=== PATIENT | male | born 1990 | race African-American/Black ===

== ENCOUNTER 2016-09-28 14:41 | Inpatient (IN) ==
[2016-09-28] MEDS ORDERED: SODIUM CHLORIDE 0.9% 1,000 ML IV STA (15:49)
[2016-09-28] MEDS ORDERED: ACETAMINOPHEN 500 MG TABLET PO STA (15:49)
--- NOTE | 2016-09-28 15:50 | Emergency Department Note ---
Edu Mills Mantricia, am scribing for, and in the presence of, Gibson Verma MD 15:47. Luci Mills Charles R, MD, personally performed the services described in this documentation, ascribed by Mciheline Sorensen in my presence, and it is both accurate and complete [id number] . Arrival - Arrival Chief Complaint: Upper Respiratory ED Nursing Triage Note: Brought in by EMS c/o congesiton, fever, body aches, and vomiting-onset 4 days ago. Also reports lower back pain x's 2 weeks. Mode of Arrival: Stretcher Limitations: No Limitations Source: Patient Time Seen by Provider: 09/28/16 14:54 - History of Present Illness HPI Narrative: Pt is a 26 y/o black male arriving to ED by EMS with c/o back pain that onset 2 weeks ago. Pt states the back pain is accompanied with leg numbness, sore throat , congestion, chills, headache, vomiting, and soreness all over. Pt also states that he had a fever of 103 yesterday. 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 Pt reports no other complaints to ED. Onset (ago): week(s) Consistency: constant Severity: mild Allergies/Adverse Reactions: Allergies Allergy/AdvReac Type Severity Reaction Status Date / Time No Known Allergies Allergy Verified 09/28/16 14:48 Home Medications: Home Medications Medication Instructions Recorded Confirmed Type No Known Home Medications [No 09/28/16 09/28/16 History Known Home Medications] Review of System - Review of System 12 point system: reviewed and no additional remarkable complaints except as stated - Review of System Constitutional: Present: chills, fever (103 yesterday). Absent: diaphoresis Eyes: Absent: discharge, pain Head/Ears/Nose/Throat: Present: other (congestion). Absent: earache, epistaxis Respiratory: Present: cough. Absent: respiratory distress, wheezing Cardiovascular: Absent: chest pain, palpitations, dyspnea on exertion Gastrointestinal: Present: vomiting. Absent: abdominal pain, nausea, diarrhea Genitourinary male: Absent: urgency, dysuria Musculoskeletal: Present: other (leg numbness). Absent: arm pain, back pain, leg pain, neck pain Skin: Absent: rash, lesions Neurological: Present: headache. Absent: weakness Medical,Surgical,& Family Hx - Social History Smoking Status: Never smoker Frequency of Alcohol Use: None Type of Drug Use: None Exam Vital Signs: Vital Signs Temperature 102.6 F H 09/28/16 16:45 Pulse Rate 87 09/28/16 19:05 Respiratory Rate 20 09/28/16 19:05 Blood Pressure 121/72 09/28/16 19:05 O2 Sat by Pulse Oximetry 98 09/28/16 19:05 - General General appearance: alert, in no apparent distress - Head Head exam: Present: atraumatic, normocephalic, normal inspection - Eye Eye exam: Present: normal appearance, PERRL, EOMI - ENT ENT exam: Present: normal exam, normal oropharynx, mucous membranes moist, TM's normal bilaterally, normal external ear exam, other (erythamous throat) - Neck Neck exam: Present: normal inspection, full ROM, trachea midline. Absent: tenderness - Chest Chest inspection: Present: normal inspection, symmetric chest wall rise. Absent : tenderness - Respiratory Respiratory exam: Present: normal lung sounds bilaterally - Cardiovascular Cardiovascular exam: Present: normal rhythm, tachycardia, normal heart sounds - Abdominal Exam Abdominal exam: Present: soft, normal bowel sounds. Absent: distention, tenderness, guarding, rebound - Extremities Exam Extremities exam: Present: normal inspection, full ROM, tenderness, normal capillary refill, other (weakness in thigh) - Back Exam Back exam: Absent: tenderness (no bony tenderness) - Neurological Exam Neurological exam: Present: alert, oriented X3, CN II-XII intact, normal gait, reflexes normal - Psychiatric Psychiatric exam: Present: normal affect, normal mood - Skin Skin exam: Present: warm, dry, intact, normal color Course - Consultations Consultation #1: Hospitalist will admit patient Time: 20:09 Results - Labs CBC & BMP: 09/28/16 16:13 09/28/16 16:13 Lab Results: I have reviewed the patients labs Labs: Laboratory Tests 09/28/16 16:13 RBC 5.61 H MCV 80.2 L Lymph % (Auto) 16.0 L Wise % (Auto) 15.6 H Lymph # (Auto) 1.2 L Wise # (Auto) 1.2 H Lymphocytes 19 L Basophils 1.0 H - Diagnostic Findings Procedure: Chest x-ray: report reviewed by me (No acute cardiopulmonary process demonstrated. ) Disposition Clinical Impression: Fever, Malaise and fatigue, Arthralgia, Nausea, Febrile illness Case discussed with: patient Disposition: Still a Patient Condition: Stable Time of Disposition: 20:11
--- NOTE | 2016-09-28 16:16 | XRay Report ---
XR chest 2V Indication: SOB/fever Comparison: None Technique: Frontal and lateral views of the chest. Findings: Heart size appears within normal limits. No focal consolidation, pleural effusion, or pneumothorax. Visualized osseous and surrounding soft tissue structures demonstrate no acute abnormality. IMPRESSION: No acute cardiopulmonary process demonstrated. PROCEDURE INTERPRETED AT [facility] DEPARTMENT OF RADIOLOGY Final Report Signed by: Dr Vitaliy Fan
[2016-09-28] MEDS ORDERED: ACETAMINOPHEN 500 MG TABLET ONE (16:27)
[2016-09-28 16:33] LABS: Basophils % 0.4 % (0.0-0.8); Hemoglobin 15.9 GM/DL (14.0-18.0); Immature Granulocytes % 0.3 %; Immature Granulocytes Absolute 0.02 #; Lymphocytes # 1.2 10*3/uL (1.4-4.0); Mean Corpuscular HGB Conc 35.3 GM/DL (32-36); Mean Corpuscular Hemoglobin 28 PG (27-34); Mean Corpuscular Volume 80.2 FL (87-102); Mean Platelet Volume 9.9 FL (9.6-12.0); Monocytes # 1.2 10*3/uL (0.11-0.8); Monocytes % 15.6 % (1.7-12.7); Neutrophils % 67.7 % (38.7-73.9); Platelet Count 175 T/CUMM (130-400); Red Blood Count 5.61 MC/CUMM (3.8-5.5); Red Cell Distribution Width 12.3 % (9.3-17.3); White Blood Count 7.4 T/CUMM (4-12)
[2016-09-28 16:56] LABS: Lymphocytes 19 % (20-55); Platelet Estimate Adequate; Segmented Neutrophils 66 % (50-85); Total Cells Counted 100
[2016-09-28 16:58] LABS: Albumin 3.7 G/DL (3.4-5.0); Bilirubin,Total 1.1 MG/DL (0.2-1.0); Calcium 9.1 MG/DL (8.5-10.1); Potassium 3.5 MMOL/L (3.5-5.1); Total Protein 7.9 G/DL (6.4-8.3)
[2016-09-28 17:42] LABS: Sedimentation Rate-Westergren 15 MM/HR (0-15)
[2016-09-28 19:06] LABS: Apearance,Urine CLEAR (Clear); Bilirubin,Urine Negative (Negative); Blood, Urine Small mg/dL (Negative); Glucose,Urine (UA) Negative (Negative); Ketones,Urine 20 mg/dL (Negative); Mucus,Urine Many /LPF (Occasional); Nitrite,Urine Negative (Negative); Protein,Urine 100 MG/DL; RBC,Urine <1 /HPF (0-4); Urine Color Yellow (Yellow); Urine Specific Gravity 1.024 (1.001-1.035); Urine Urobilinogen < 2.0 EU/DL (0.2-1.0); WBC,Urine 1 /HPF (0-6)
--- NOTE | 2016-09-28 19:31 | CT Report ---
CT abdomen pelvis w con Indication: Generalized abdominal pain. Comparison: None. Technique: CT of the abdomen and pelvis was performed following administration of intravenous contrast. The CT examination was performed using one or more of the following dose reduction techniques: Automatic exposure control, adjustment of the mA and kV according to patient size, or iterative reconstruction techniques. Findings: Lower chest: No acute findings are noted within the lower chest. Liver: Subcentimeter hypodense lesion within the right hepatic lobe image #48 most likely represents cyst or hemangioma. This lesion is too small to further characterize. The liver is otherwise unremarkable. Gallbladder: The gallbladder demonstrates no significant abnormality. Spleen: Spleen is normal in size and appearance. Pancreas: Pancreas demonstrates no significant abnormality. Adrenal glands: The adrenal glands demonstrate no significant abnormalities. Kidneys: The kidneys demonstrate no significant abnormalities. Aorta: The aorta demonstrates no significant abnormality. Inferior vena cava: The inferior vena cava demonstrates no significant abnormality. Lymph nodes: A few of the mesenteric lymph nodes of borderline size to minimally enlarged. Stomach and bowel: The stomach, duodenum, small bowel, appendix, and large bowel demonstrate no significant abnormalities. Intrapelvic contents: Demonstrate no significant abnormalities. Skeletal structures: The imaged bony structures of the lumbar spine, lower chest, pelvis, proximal femurs demonstrate no acute findings. Soft tissues and muscular structure of the body wall: Demonstrate no significant abnormalities. Impression: 1. No specific acute findings are demonstrated. Nonspecific borderline to minimally enlarged mesenteric lymph nodes are noted. The clinical significance of these is unknown. 09/28/2016 7:26 PM PROCEDURE INTERPRETED AT [facility] DEPARTMENT OF RADIOLOGY Final Report Signed by: Dr. Bob Brown
[2016-09-28] MEDS ORDERED: cefTRIAXone 1,000 MG in SODIUM CHLORIDE 0.9% 100 ML IV STA (20:07)
[2016-09-28] MEDS ORDERED: cefTRIAXone 1,000 MG VIAL ONE (20:11)
[2016-09-28] MEDS ORDERED: ONDANSETRON 4 MG/2 ML VIAL IV PRN (20:38)
--- NOTE | 2016-09-28 20:45 | Hospitalist History & Physical ---
Assessment and Plan (1) Gastroenteritis Status: Acute Current Visit: Yes (2) Fever Status: Acute Current Visit: Yes (3) Malaise and fatigue Status: Acute Current Visit: Yes (4) Arthralgia Status: Acute Current Visit: Yes (5) Nausea Status: Acute Assessment and plan: Patient is going to be admitted to our service and can provide him with hydration during the night start him on a clear liquid diet monitor his fever. If he has diarrhea will get stool samples. Hopefully patient can be discharged in the morning. Will repeat labs in the morning. Current Visit: Yes History of Present Illness Chief complaint: Multiple complaints History of present illness: Mr. Barnett is a 26 year old male no past medical history presents to our hospital with multiple complaints. Patient reports that he has had 2 weeks of back pain. He does have a physical job and thought that was related to his work. He developed a sore throat and headache a couple days ago. Really did not want to eat. He developed diarrhea and nausea. He got up today to go to the doctor but he felt real unsteady. He was having some sinus drainage but denies coughing. He felt weak and numb. He felt like he could not walk and he called EMS patient was brought to our hospital for further evaluation. Patient had elevated temperature. He received some Tylenol and currently patient is feeling a little bit better. I was consulted to admit the patient Home Medications Medication Instructions Recorded Confirmed Type No Known Home Medications [No 09/28/16 09/28/16 History Known Home Medications] Allergies Allergy/AdvReac Type Severity Reaction Status Date / Time No Known Allergies Allergy Verified 09/28/16 14:48 Medical,Surgical,& Family Hx - Medical History Medical History: noncontributory (none) - Surgical History Surgical History: noncontributory (none) - Family History Family History: noncontributory (none) - Social History Smoking Status: Never smoker Frequency of Alcohol Use: None Type of Drug Use: None 12 point system: reviewed and no additional remarkable complaints except as stated Exam - Constitutional Vitals: Period Temp Pulse Resp BP Sys/Piper Pulse Ox Last 24 Hr 100.1 F-102.6 F 87-106 16-20 120-164/72-87 94-100 - General General appearance: alert, in no apparent distress - Head Head exam: Present: atraumatic, normocephalic, normal inspection - Eye Eye exam: Present: normal appearance, PERRL, EOMI - ENT ENT exam: Present: normal exam, normal oropharynx, mucous membranes moist, TM's normal bilaterally, normal external ear exam - Neck Neck exam: Present: normal inspection, full ROM, trachea midline. Absent: tenderness - Chest Chest inspection: Present: normal inspection, symmetric chest wall rise. Absent : tenderness - Respiratory Respiratory exam: Present: normal lung sounds bilaterally - Cardiovascular Cardiovascular exam: Present: normal rhythm, tachycardia, normal heart sounds - Abdominal Exam Abdominal exam: Present: soft, normal bowel sounds. Absent: distention, tenderness, guarding, rebound - Extremities Exam Extremities exam: Present: normal inspection, full ROM, tenderness, normal capillary refill, other (weakness in thigh) - Back Exam Back exam: Absent: tenderness (no bony tenderness) - Neurological Exam Neurological exam: Present: alert, oriented X3, CN II-XII intact, normal gait, reflexes normal - Psychiatric Psychiatric exam: Present: normal affect, normal mood - Skin Skin exam: Present: warm, dry, intact, normal color Results - Labs CBC & BMP: 09/28/16 16:13 09/28/16 16:13
[2016-09-28] MEDS: SODIUM CHLORIDE 0.9% 1,000 ML IV SCH (23:07)
[2016-09-29] MEDS: ACETAMINOPHEN 325 MG TABLET PO PRN ×3 (00:07→23:13)
[2016-09-29 06:35] LABS: Albumin 3.2 G/DL (3.4-5.0); Bilirubin,Total 0.8 MG/DL (0.2-1.0); Calcium 8.5 MG/DL (8.5-10.1); Osmolality,Calculated 270.8 MOS/KG (273-304); Potassium 3.6 MMOL/L (3.5-5.1); Total Protein 6.9 G/DL (6.4-8.3)
[2016-09-29 06:47] LABS: Basophils % 0.4 % (0.0-0.8); Hematocrit 39.6 VOL% (42.0-52.0); Hemoglobin 13.6 GM/DL (14.0-18.0); Immature Granulocytes % 0.9 %; Immature Granulocytes Absolute 0.07 #; Lymphocytes # 1.2 10*3/uL (1.4-4.0); Lymphocytes % 14.2 % (21.2-54.2); Mean Corpuscular HGB Conc 34.3 GM/DL (32-36); Mean Corpuscular Hemoglobin 28 PG (27-34); Mean Corpuscular Volume 80.7 FL (87-102); Mean Platelet Volume 10.3 FL (9.6-12.0); Monocytes # 1.1 10*3/uL (0.11-0.8); Monocytes % 13.5 % (1.7-12.7); Neutrophils # 5.7 10*3/uL (1.4-7.4); Platelet Count 176 T/CUMM (130-400); Red Blood Count 4.91 MC/CUMM (3.8-5.5); Red Cell Distribution Width 12.4 % (9.3-17.3); White Blood Count 8.1 T/CUMM (4-12)
[2016-09-29] MEDS: SODIUM CHLORIDE 0.9% 1,000 ML IV SCH ×3 (09:57→23:12)
[2016-09-29] MEDS: PANTOPRAZOLE 40 MG TABLET PO SCH (11:30)
--- NOTE | 2016-09-29 12:23 | Hospitalist Progress Note ---
Assessment and Plan (1) Bilateral headaches Status: Acute Assessment and plan: These are more or less tension headaches. The patient also has sinusitis alongside his headaches. Headaches and will be the symptoms started more is around the same time her viral condition cannot be ruled out at this point. He denies facial pain however he definitely does have coryza and nasal speech. He received a congestion with Flonase nasal 1 spray to each nostril daily and H1 inhibitor preferably long-acting like Zyrtec 10 mg daily. Continue antibiotics as already started. Current Visit: Yes (2) Sinusitis, acute Status: Acute Assessment and plan: As above Current Visit: Yes Qualifiers: Sinusitis location: frontal Recurrence: non-recurrent Qualified Code(s): J01.10 - Acute frontal sinusitis, unspecified (3) Malaise and fatigue Status: Acute Assessment and plan: This most likely secondary to the acute syndrome. Patient is febrile has had significant diarrhea and most likely body fluid contraction. Give crystalloid conservative at this point as the patient is now drinking. Normal saline at 75 mL/h. Check basic metabolic profile with magnesium and CBC in the morning Current Visit: Yes (4) Febrile illness Status: Acute Current Visit: Yes (5) Gastroenteritis Status: Acute Assessment and plan: From subjective information on the strong suggestion of possibility of a preformed toxin. Vital gastroenterology disease cannot be ruled out. Because of associated nausea vomiting norovirus should be considered however enterovirus should be considered. Preformed toxin from Staphylococcus is a possibility since a carbohydrate meal was involved bacillus service is also possibility. Continue supportive care. For health maintenance gentleman has never had an HIV test done. He is agreed to having HIV antibody antigen screening done. This will be done today and has been counseled. Current Visit: Yes Hospitalist: Subjective Interval history: Patient has been seen interviewed and examined and chart has been reviewed. 26- year-old gentleman was admitted through the emergency room with complaints of generalized fatigue headaches nasal congestion but also developed an acute gastroenteritis syndrome with nausea vomiting abdominal pain most on the left side diarrhea with loose stools uncontrollably. Patient reported also had a fever when he reported to the emergency room. Because having eaten cheese grits every Monday and about 4 hours later started having problems of achiness diarrhea and upset stomach. This does sound like a preformed toxin condition. He denies joint pain he has not had a rash that extent with headaches use rather than usual. They described as temporal headaches and frontal headache no visual disturbance. No associated focal neurologic deficits. Exam - Constitutional Vitals: Period Temp Pulse Resp BP Sys/Piper Pulse Ox Last 24 Hr 99.2 F-102.7 F 80-114 14-20 120-164/61-87 94-100 General appearance: normal weight, other (Would developed and preserved male with good nutritional status) - Head Head exam: Present: normocephalic, atraumatic, other - Eye Eye exam: Present: EOMI (Anicteric sclera no conjunctival petechiae) Pupils: Present: JHOANA - ENT ENT exam: Present: normal exam, normal oropharynx - Neck Neck exam: Present: normal inspection, other (Supple neck no regional adenopathy did complain of some pain on manipulation of the neck in the back of the neck but it was supple) - Cardiovascular Cardiovascular exam: Present: regular rate and rhythm - GI/Abdominal GI/Abdominal exam: Present: normal bowel sounds, soft - Extremities Exam Extremities exam: Present: full ROM - Back Exam Back exam: Present: normal inspection - Neurological Exam Neurological exam: Present: alert, oriented X3, CN II-XII intact - Psychiatric Psychiatric exam: Present: normal affect, normal mood - Skin Skin exam: Present: normal color, warm, dry Results - Labs CBC & BMP: 09/29/16 04:00 09/29/16 04:00 Lab Results: I have reviewed the past 24 hour labs (Noted normal white count mild anemia following crystalloids hemoglobin of 15.6 with hematocrit of 39.6 normal electrolyte panel. C-reactive protein of 15.2 (elevated) lipase normal at 188 noted mucus on the urinalysis otherwise unremarkable slightly hypoosmolar 270.8 mmol/L)
[2016-09-29] MEDS: PSEUDOEPHEDRINE 30 MG TABLET PO SCH ×3 (12:41→23:10)
[2016-09-29] MEDS: CETIRIZINE 10 MG TABLET PO SCH (12:42)
[2016-09-29 13:34] LABS: HIV Antigen/Antibody Result Nonreactive (Nonreactive)
[2016-09-30] MEDS: PSEUDOEPHEDRINE 30 MG TABLET PO SCH ×4 (05:47→23:01)
[2016-09-30] MEDS: ACETAMINOPHEN 325 MG TABLET PO PRN ×2 (08:11→19:43)
[2016-09-30] MEDS: PANTOPRAZOLE 40 MG TABLET PO SCH (09:31)
[2016-09-30] MEDS: CETIRIZINE 10 MG TABLET PO SCH (09:31)
[2016-09-30] MEDS: FLUTICASONE 50 MCG NASAL SPRAY 16 GM BOTTLE BOTH NARES SCH (09:37)
--- NOTE | 2016-09-30 11:45 | Hospitalist Progress Note ---
Assessment and Plan (1) Bilateral headaches Status: Acute Assessment and plan: These are more or less tension headaches. The patient also has sinusitis alongside his headaches. Headaches and will be the symptoms started more is around the same time her viral condition cannot be ruled out at this point. He denies facial pain however he definitely does have coryza and nasal speech. He received a congestion with Flonase nasal 1 spray to each nostril daily and H1 inhibitor preferably long-acting like Zyrtec 10 mg daily. Continue antibiotics as already started. Current Visit: Yes (2) Sinusitis, acute Status: Acute Assessment and plan: As above Current Visit: Yes Qualifiers: Sinusitis location: frontal Recurrence: non-recurrent Qualified Code(s): J01.10 - Acute frontal sinusitis, unspecified (3) Malaise and fatigue Status: Acute Assessment and plan: This most likely secondary to the acute syndrome. Patient is febrile has had significant diarrhea and most likely body fluid volume contraction. Give crystalloid conservative at this point as the patient is now drinking. Normal saline at 75 mL/h. Check basic metabolic profile with magnesium and CBC in the morning Current Visit: Yes (4) Febrile illness Status: Acute Current Visit: Yes (5) Gastroenteritis Status: Acute Assessment and plan: From subjective information on the strong suggestion of possibility of a preformed toxin. Vital gastroenterology disease cannot be ruled out. Because of associated nausea vomiting norovirus should be considered however enterovirus should be considered. Preformed toxin from Staphylococcus is a possibility since a carbohydrate meal was involved bacillus cerues is also possibility. Continue supportive care. HIV status is nonreactive. Current Visit: Yes Hospitalist: Subjective Interval history: Patient has been seen interviewed and examined and chart has been reviewed. Fevers. His diarrhea is letting up. He is decongestion is effective. Most likely these antibiotics were given once in the emergency room of the authorities were continued but it was a one-time dose. He needs to be on antibiotics for sinusitis. Headaches are better he needs to be advanced on diet too. Exam - Constitutional Vitals: Period Temp Pulse Resp BP Sys/Piper Pulse Ox Last 24 Hr 97.6 F-102.6 F 77-105 14-21 125-152/66-86 93-100 General appearance: normal weight - Head Head exam: Present: normocephalic, atraumatic - Eye Eye exam: Present: EOMI Pupils: Present: JHOANA - ENT ENT exam: Present: other (Significant coryza with bilateral maxillary discomfort ) - Neck Neck exam: Present: normal inspection, other (No regional adenopathy) - Respiratory Respiratory exam: Present: clear to auscultation bilaterally - Cardiovascular Cardiovascular exam: Present: regular rate and rhythm - GI/Abdominal GI/Abdominal exam: Present: normal bowel sounds - Extremities Exam Extremities exam: Present: full ROM - Neurological Exam Neurological exam: Present: alert, oriented X3, CN II-XII intact - Psychiatric Psychiatric exam: Present: normal affect, normal mood - Skin Skin exam: Present: normal color, warm Results - Labs CBC & BMP: 09/29/16 04:00 09/29/16 04:00 Lab Results: I have reviewed the past 24 hour labs
[2016-09-30] MEDS ORDERED: LEVOFLOXACIN INJ 750 MG in PREMIX 1 EACH IV SCH (12:00)
[2016-09-30] MEDS: SODIUM CHLORIDE 0.9% 1,000 ML IV SCH ×2 (13:19→13:37)
[2016-10-01] MEDS: SODIUM CHLORIDE 0.9% 1,000 ML IV SCH (05:28)
[2016-10-01] MEDS: PSEUDOEPHEDRINE 30 MG TABLET PO SCH (05:31)
--- NOTE | 2016-10-01 07:42 | Hospitalist Progress Note ---
Assessment and Plan - Time spent with patient Time spent with patient: Less than 30 minutes (1) Gastroenteritis Status: Acute Current Visit: Yes (2) Bilateral headaches Status: Acute Current Visit: Yes (3) Sinusitis, acute Status: Acute Current Visit: Yes Qualifiers: Sinusitis location: frontal Recurrence: non-recurrent Qualified Code(s): J01.10 - Acute frontal sinusitis, unspecified Exam - Constitutional Vitals: Period Temp Pulse Resp BP Sys/Piper Pulse Ox Last 24 Hr 97.6 F-101.1 F 65-96 16-18 130-141/61-87 98-100 Results - Labs CBC & BMP: 09/29/16 04:00 09/29/16 04:00
--- NOTE | 2016-10-01 07:50 | Discharge Summary ---
Hospital Course - Hospital Course Hospital Course: Mr. Barnett is a 26-year-old -[place] male with no past medical history who presented with 2 weeks of lower back pain followed by sore throat, headache , nausea with poor appetite and some diarrhea. He had generalized weakness and was evaluated in the emergency room and noted to be febrile at which time he was admitted to the hospitalist service. He was hydrated and treated symptomatically. Stool studies and blood cultures have been negative. He was treated for possible acute sinusitis with IV antibiotics. He did have fever yesterday but has remained afebrile since that time and states symptomatically is better and desires to go home. It is felt that this was likely secondary to an acute viral illness and that it is safe at this time for him to go home and continue antibiotic therapy by mouth as well as symptomatic therapy including nasal hygiene and acetaminophen for fevers and body aches. - Time spent with patient Time with patient DS: Greater than 30 minutes Diagnosis - Discharge Diagnosis (1) Gastroenteritis Status: Acute (2) Bilateral headaches Status: Acute (3) Sinusitis, acute Status: Acute (4) Acute viral syndrome Status: Acute Discharge Plan - Discharge Data Disposition: Disch To Home/Self Care Condition at Discharge: Stable Discharge Diet: advance to your usual diet Activity: resume usual activities as tolerated Hygiene: no restrictions Weight Bearing at Discharge: full weight bearing Driving: no restrictions Contact your physician if you experience:: fever over 101, Shortness of breath - Discharge Medications New Acetaminophen [Pain Relief] 325 mg PO Q6HR PRN #30 capsule PRN Reason: Fever, Headache, Mild Pain Fluticasone 50 Mcg Nasal [place] [Flonase Nasal [place]] 1 spray BOTH NARES DAILY #1 spray Levofloxacin Tab [Levaquin Tab] 250 mg PO DAILY #7 tablet Desloratadine 5 mg PO DAILY #30 tab.rapdis - Follow Up or Referral Follow Up: PCP, Clinic [Other] - 5 Days - Forms/Instructions Exam - Constitutional Vitals: Period Temp Pulse Resp BP Sys/Piper Pulse Ox Last 24 Hr 97.6 F-101.1 F 65-96 16-18 130-141/61-87 98-100 General appearance: no acute distress - Head Head exam: Present: normocephalic, atraumatic - Eye Eye exam: Present: EOMI Pupils: Present: JHOANA - ENT ENT exam: Present: normal exam - Neck Neck exam: Present: normal inspection - Respiratory Respiratory exam: Present: clear to auscultation bilaterally. Absent: rales, rhonchi, wheezes - Cardiovascular Cardiovascular exam: Present: regular rate and rhythm. Absent: gallop, rubs, systolic murmur, tachycardia - GI/Abdominal GI/Abdominal exam: Present: normal bowel sounds, soft. Absent: mass, tenderness , rebound - Extremities Exam Extremities exam: Absent: calf tenderness, edema - Back Exam Back exam: Present: normal inspection - Neurological Exam Neurological exam: Present: alert, oriented X3, CN II-XII intact. Absent: motor sensory deficit - Psychiatric Psychiatric exam: Present: normal affect, normal mood. Absent: agitated, anxious - Skin Skin exam: Present: warm, dry. Absent: erythema, rash Discharge Results Procedures and tests throughout hospitalization: Pending Orders 09/28/16 Stool Culture Routine 09/28/16 17:51 Blood Culture Stat 09/29/16 Occult Blood, Stool Routine Labs on day of discharge: Preliminary micro results at discharge 09/28/16 Unknown Stool Culture - Preliminary Stool No growth at 24 hours 09/28/16 17:51 Blood Culture - Preliminary Blood No growth at 1 day 09/28/16 17:51 Blood Culture - Preliminary Blood No growth at 1 day DS: Provider Date of admission: 09/28/16 20:38 Primary care physician: . No PCP Attending physician on admission: Saturnino Presley MD Discharging clinician: Leonardo Alonso Expected date of discharge: 10/01/16
[2016-10-01] MEDS: CETIRIZINE 10 MG TABLET PO SCH (09:36)
[2016-10-01] MEDS: PANTOPRAZOLE 40 MG TABLET PO SCH (09:36)
[2016-10-01] MEDS: FLUTICASONE 50 MCG NASAL SPRAY 16 GM BOTTLE BOTH NARES SCH (09:37)
[2016-10-01 10:10] VITALS: BP 131/78
== END 2016-10-01 11:30 | disposition home or self-care (01) | DRG 392 ==
LOC: N.ED 14:41 → N.EDINP 14:41 → SUATTDRO 20:38 → OBSVTOIN 20:38 → N.EDINP 22:40 → N.5E 23:01
PROVIDERS: ADMIT Internal Medicine; ATTEND Hospitalist